=== PATIENT | male | born 1955 | race Caucasian/White ===

== ENCOUNTER 2016-11-14 13:13 | Outpatient (CLI) | payer BC | END 2016-11-14 23:00 | LOC: RT SRH 13:13 | DX: J44.9 Chronic obstructive pulmonary disease, unspecified (principal); Z87.891 Personal history of nicotine dependence ==

== ENCOUNTER 2016-11-25 14:59 | Emergency (ER) | payer BC ==
--- NOTE | 2016-11-25 16:51 | ED NURSING NOTES ---
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 Acuity: LEVEL 3. Chief Complaint: LEFT UPPER EXTREMITY PAIN and NUMBNESS. Alert. --15:14 Hazel Singleton 15:11 11/25/16. BP: 143/91. HR: 65. RR: 18. O2 saturation: 99%. Temp: 98.2 F. Pain level now 01/14. --15:14 Hazel Singleton. Weight: 81.6 kg. Height/Length: 71 inches. BMI: 25.1. --15:11 Hazel Singleton. Medications Ventolin HFA Inhalation. --15:12 Hazel Singleton FLUoxetine HCl Oral. --15:12 Hazel Singleton. Allergies No Known Drug Allergy. --15:12 Hazel Singleton. History Arrived by private vehicle. Historian: patient. Accompanied by family. No injury occurred. This occurred yesterday. 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 SOCIAL HX: Heavy tobacco smoker (cigarette)- 1 pack per day. Alcohol use. History of drug use: marijuana. --15:14 Hazel Singleton ( Pt recently referred to neurology due to c/o spasms to lower legs inc top of shins, CK highly elevated). --15:17 Hazel Singleton. ADDITIONAL SURGERIES: Back Surgery. --15:13 Hazel Singleton. Interventions ID band on patient. To treatment room. --15:14 Hazel Singleton. PHYSICAL ASSESSMENT Ambulatory to room. GENERAL / NEURO / PSYCH: Oriented X 4. Alert. Appears in pain. EXTREMITIES: Left shoulder: tenderness. Left arm: tenderness (numbness tingling). Left forearm: (numbness tingling). SKIN: Skin intact. Skin is warm and dry. --15:15 Hazel Singleton. NURSING PROGRESS NOTES Patient gowned. Reassurance given. Call light placed in reach. Bed placed in lowest position. Brakes of bed on. --15:16 Hazel Singleton 16:11 11/25/2016 Toradol (Ketorolac Tromethamine) IM 60 mg given. Given in the left gluteus mavis. Allergies verified and confirmed 5 rights. --16:12 Hazel Singleton 16:13 11/25/2016 Soma (Carisoprodol) PO 350 mg given. Allergies verified, confirmed 5 rights and sedative warning given to the patient and patient's family. --16:13 Hazel Singleton 16:13 11/25/2016 Oxycodone-APAP (Oxycodone-Acetaminophen) PO 10/650 mg Tablets 2 tab given. Allergies verified, confirmed 5 rights and sedative warning given to the patient. --16:13 Hazel Singleton. DISPOSITION / DISCHARGE Departure time: 1655. Condition at departure: unchanged and stable. No learning barriers present. Discharge instructions provided and reviewed with the patient. Reviewed warnings. Reviewed medication(s). Patient verbalized understanding. Written instructions provided in Greenlandic. The patient was discharged by the physician. He was discharged home and accompanied by spouse. He left the Emergency Department ambulatory and via private vehicle. Spouse driving. --16:56 Hazel Singleton. Locked/Released at 11/25/2016 16:57 by Hazel Singleton,
--- NOTE | 2016-11-25 16:51 | ED NURSING NOTES ---
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 Acuity: LEVEL 3. Chief Complaint: LEFT UPPER EXTREMITY PAIN and NUMBNESS. Alert. --15:14 Hazel Singleton 15:11 11/25/16. BP: 143/91. HR: 65. RR: 18. O2 saturation: 99%. Temp: 98.2 F. Pain level now 01/14. --15:14 Hazel Singleton. Weight: 81.6 kg. Height/Length: 71 inches. BMI: 25.1. --15:11 Hazel Singleton. Medications Ventolin HFA Inhalation. --15:12 Hazel Singleton FLUoxetine HCl Oral. --15:12 Hazel Singleton. Allergies No Known Drug Allergy. --15:12 Hazel Singleton. History Arrived by private vehicle. Historian: patient. Accompanied by family. No injury occurred. This occurred yesterday. 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 SOCIAL HX: Heavy tobacco smoker (cigarette)- 1 pack per day. Alcohol use. History of drug use: marijuana. --15:14 Hazel Singleton ( Pt recently referred to neurology due to c/o spasms to lower legs inc top of shins, CK highly elevated). --15:17 Hazel Singleton. ADDITIONAL SURGERIES: Back Surgery. --15:13 Hazel Singleton. Interventions ID band on patient. To treatment room. --15:14 Hazel Singleton. PHYSICAL ASSESSMENT Ambulatory to room. GENERAL / NEURO / PSYCH: Oriented X 4. Alert. Appears in pain. EXTREMITIES: Left shoulder: tenderness. Left arm: tenderness (numbness tingling). Left forearm: (numbness tingling). SKIN: Skin intact. Skin is warm and dry. --15:15 Hazel Singleton. NURSING PROGRESS NOTES Patient gowned. Reassurance given. Call light placed in reach. Bed placed in lowest position. Brakes of bed on. --15:16 Hazel Singleton 16:11 11/25/2016 Toradol (Ketorolac Tromethamine) IM 60 mg given. Given in the left gluteus mavis. Allergies verified and confirmed 5 rights. --16:12 Hazel Singleton 16:13 11/25/2016 Soma (Carisoprodol) PO 350 mg given. Allergies verified, confirmed 5 rights and sedative warning given to the patient and patient's family. --16:13 Hazel Singleton 16:13 11/25/2016 Oxycodone-APAP (Oxycodone-Acetaminophen) PO 10/650 mg Tablets 2 tab given. Allergies verified, confirmed 5 rights and sedative warning given to the patient. --16:13 Hazel Singleton. DISPOSITION / DISCHARGE Departure time: 1655. Condition at departure: unchanged and stable. No learning barriers present. Discharge instructions provided and reviewed with the patient. Reviewed warnings. Reviewed medication(s). Patient verbalized understanding. Written instructions provided in Solomon Islander. The patient was discharged by the physician. He was discharged home and accompanied by spouse. He left the Emergency Department ambulatory and via private vehicle. Spouse driving. --16:56 Hazel Singleton. Locked/Released at 11/25/2016 16:57 by Hazel Singleton,
--- NOTE | 2016-11-25 16:51 | ED ORDER SUMMARY ---
..... 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 [facility] VisitID: [id number] [place] [address] 60y, M Registration Date/Time: 11/25/2016 ORDER SHEET Weight: 81.6 kg Allergies: No Known Drug Allergy GENERAL ORDERS: Cervical Spine 2 or 3V Urgent (15:48 11/25/2016 Shiv POSADA) ([facility]ck [facility] (16[facility] Sling - arm (16:29 11/25/2016 Shiv POSADA) (16:51 Katie) MEDICATION ORDERS: Toradol IM 60 mg (NOW) (15:48 11/25/2016 Shiv POSADA) (16:12 Katie) Soma PO 350 mg (NOW) (15:48 11/25/2016 Shiv POSADA) (16:13 Katie) Oxycodone-APAP PO 10/650 mg (NOW) (15:49 11/25/2016 Shiv POSADA) (16:13 Katie) IV FLUIDS: ORDER SHEET NOTES: [Electronically signed by Hazel Singleton (16:57 11/25/2016)] [Electronically signed by Scooby Han MD (15:08 12/01/2016)] [Electronically locked/signed by Hazel Singleton (16:57 11/25/2016)]
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
--- NOTE | 2016-11-25 16:51 | ED ORDER SUMMARY ---
..... 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 [facility] VisitID: [id number] [place] [address] 60y, M Registration Date/Time: 11/25/2016 ORDER SHEET Weight: 81.6 kg Allergies: No Known Drug Allergy GENERAL ORDERS: Cervical Spine 2 or 3V Urgent (15:48 11/25/2016 Shiv POSADA) (Ack 15:55 [facility] Sling - arm (16:29 11/25/2016 Shiv POSADA) (16:51 Katie) MEDICATION ORDERS: Toradol IM 60 mg (NOW) (15:48 11/25/2016 Shiv POSADA) (16:12 Katie) Soma PO 350 mg (NOW) (15:48 11/25/2016 Shiv POSADA) (16:13 Katie) Oxycodone-APAP PO 10/650 mg (NOW) (15:49 11/25/2016 Shiv POSADA) (16:13 Katie) IV FLUIDS: ORDER SHEET NOTES: [Electronically signed by Hazel Singleton (16:57 11/25/2016)] [Electronically signed by Scooby Han MD (15:08 12/01/2016)] [Electronically locked/signed by Hazel Singleton (16:57 11/25/2016)]
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
--- NOTE | 2016-11-25 16:59 | DIAGNOSTIC IMAGING REPORT ---
PROCEDURE: XR CERVICAL SPINE 2 OR 3 VIEW INDICATION: NECK PAIN TECHNIQUE: Three views. COMPARISON: None. FINDINGS: Normal alignment without fracture. Moderate degenerative changes at C4-5, C5-6 and C6-7. There is some straightening of the cervical spine. Odontoid, lateral masses of C1 and prevertebral soft tissues are normal. IMPRESSION: 1. Moderate degenerative changes with multilevel disc space narrowing 2. Straightening of the cervical spine suggestive of muscular spasm.
--- NOTE | 2016-12-01 15:09 | ED MAR SUMMARY ---
..... 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 Medication Ordered: Toradol IM 60 mg (NOW). Given 16:11/25/2016 Hazel Singleton, Medication Administered: SOMA [PO] (CARISOPRODOL), Dose: 350 mg PO. Medication Ordered: Soma PO 350 mg (NOW). Given 16:11/25/2016 Hazel Singleton, Medication Administered: OXYCODONE-APAP [PO] (OXYCODONE-ACETAMINOPHEN), Dose: 2 tab 10/650 mg Tablets PO. Medication Ordered: Oxycodone-APAP PO 10/650 mg (NOW).
--- NOTE | 2016-12-01 15:09 | ED MED RECONCILIATION SUMMARY ---
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 BMI: 25.1 ALLERGIES: No Known Drug Allergy The patient's Home Medications are listed below: THE FOLLOWING MEDICATIONS NEED TO BE RECONCILED: FLUoxetine HCl Oral Ventolin HFA Inhalation The source(s) of the original Home Medication information: Not obtained. The following Medications were given to the patient in the Emergency Department: Toradol [IM] IM 60 mg, administered: 11/25/2016 4:11:00 PM Soma [PO] PO 350 mg, administered: 11/25/2016 4:13:00 PM Oxycodone-APAP [PO] PO 2 tab, administered: 11/25/2016 4:13:00 PM The following Medications were prescribed to the patient: Motrin (available over the counter): take according to label instructions. -- Scooby Han MD Oxycodone/APAP 5 mg/325 mg: take 1-2 tablets orally every 4 hours as needed for pain. Dispense twenty (20). No refill. -- Scooby Han MD Soma 350 mg: Take 1 orally every 6 hours as needed for muscle spasm. Dispense twenty (20). No refills. Substitution is permissible. -- Scooby Han MD
--- NOTE | 2016-12-01 15:09 | ED MAR SUMMARY ---
..... 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 Medication Ordered: Toradol IM 60 mg (NOW). Given 16:11/25/2016 Hazel Singleton, Medication Administered: SOMA [PO] (CARISOPRODOL), Dose: 350 mg PO. Medication Ordered: Soma PO 350 mg (NOW). Given 16:11/25/2016 Hazel Singleton, Medication Administered: OXYCODONE-APAP [PO] (OXYCODONE-ACETAMINOPHEN), Dose: 2 tab 10/650 mg Tablets PO. Medication Ordered: Oxycodone-APAP PO 10/650 mg (NOW).
--- NOTE | 2016-12-01 15:09 | ED MED RECONCILIATION SUMMARY ---
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 BMI: 25.1 ALLERGIES: No Known Drug Allergy The patient's Home Medications are listed below: THE FOLLOWING MEDICATIONS NEED TO BE RECONCILED: FLUoxetine HCl Oral Ventolin HFA Inhalation The source(s) of the original Home Medication information: Not obtained. The following Medications were given to the patient in the Emergency Department: Toradol [IM] IM 60 mg, administered: 11/25/2016 4:11:00 PM Soma [PO] PO 350 mg, administered: 11/25/2016 4:13:00 PM Oxycodone-APAP [PO] PO 2 tab, administered: 11/25/2016 4:13:00 PM The following Medications were prescribed to the patient: Motrin (available over the counter): take according to label instructions. -- Scooby Han MD Oxycodone/APAP 5 mg/325 mg: take 1-2 tablets orally every 4 hours as needed for pain. Dispense twenty (20). No refill. -- Scooby Han MD Soma 350 mg: Take 1 orally every 6 hours as needed for muscle spasm. Dispense twenty (20). No refills. Substitution is permissible. -- Scooby Han MD
--- NOTE | 2016-12-01 15:09 | ED DISCHARGE INSTRUCTIONS ---
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 INSTRUCTIONS Warnings: Further evaluation is necessary. GENERAL WARNINGS: Return or contact your physician immediately if your condition worsens or changes unexpectedly, if not improving as expected, or if other problems arise. Prescription Medications: Oxycodone/APAP 5 mg/325 mg: take 1-2 tablets orally every 4 hours as needed for pain. Dispense twenty (20). No refill. Soma 350 mg: Take 1 orally every 6 hours as needed for muscle spasm. Dispense twenty (20). No refills. Substitution is permissible. OTC Medications: Motrin (available over the counter): take according to label instructions. Understanding of the discharge instructions verbalized by patient. Follow-up with: Julius Cortes MD, [facility], , [facility] Abdirahman Tam [place] [id number] [id number] Follow up Monday in three days as scheduled. ADDITIONAL INFORMATION Pinched Nerve, Neck [Cervical Radiculopathy] A pinched nerve in the neck (also called "Cervical Radiculopathy") is caused by irritation or pressure on the nerve that goes from the spinal cord to the arm. This may be caused by a bulging spinal disk (a "spinal disk" is the cushion between each spinal bone) or narrowing of the spinal joint due to arthritis. This can cause numbness, tingling, deep aching or electrical shooting pain from the side of the neck all the way down to the fingers on one side. A pinched nerve may begin after a sudden turning/bending force (such as in a car accident) or after a simple awkward movement. In either case, muscle spasm is commonly present and contributes to the pain. Home Care: 1) Rest and relax the muscles. Use a comfortable pillow that supports the head and keeps the spine in a neutral position. The position of the head should not be tilted forward or backward. A rolled up towel may help for a custom fit. 2) Some persons find relief with heat (hot shower, hot bath or heating pad) and massage, while others prefer cold packs (crushed or cubed ice in a plastic bag, wrapped in a towel) . Try both and use the method that feels best for 20 minutes several times a day. 3) You may use acetaminophen (Tylenol) or ibuprofen (Motrin, Advil) to control pain, unless another medicine was prescribed. [ NOTE : If you have chronic liver or kidney disease or ever had a stomach ulcer or GI bleeding, talk with your doctor before using these medicines.] Follow Up with your physician or this facility if your symptoms do not show signs of improvement after one week. Further testing may be needed. [NOTE: If x-rays were taken, they will be reviewed by a radiologist. You will be notified of any new findings that may affect your care.] Get Prompt Medical Attention if any of the following occur: -- Pain becomes worse and not controlled by prescribed pain medicine -- Weakness in the arm -- Increasing numbness in the arm -- Trouble breathing or swallowing Oxycodone Hydrochloride, Acetaminophen Oral tablet What is this medicine? ACETAMINOPHEN; OXYCODONE (a set a JUDY phil fen; ox i KOE done) is a pain reliever. It is used to treat mild to moderate pain. How should I use this medicine? Take this medicine by mouth with a full glass of water. Follow the directions on the prescription label. Take your medicine at regular intervals. Do not take your medicine more often than directed. Talk to your cnp regarding the use of this medicine in children. Special care may be needed. Patients over 65 years old may have a stronger reaction and need a smaller dose. What side effects may I notice from receiving this medicine? Side effects that you should report to your doctor or health home care giver as soon as possible: allergic reactions like skin rash, itching or hives, swelling of the face, lips, or tongue breathing difficulties, wheezing confusion light headedness or fainting spells severe stomach pain yellowing of the skin or the whites of the eyes Side effects that usually do not require medical attention (report to your doctor or health home care giver if they continue or are bothersome): dizziness drowsiness nausea vomiting What may interact with this medicine? alcohol antihistamines barbiturates like amobarbital, butalbital, butabarbital, methohexital, pentobarbital, phenobarbital, thiopental, and secobarbital benztropine drugs for bladder problems like solifenacin, trospium, oxybutynin, tolterodine, hyoscyamine, and methscopolamine drugs for breathing problems like ipratropium and tiotropium drugs for certain stomach or intestine problems like propantheline, homatropine methylbromide, glycopyrrolate, atropine, belladonna, and dicyclomine general anesthetics like etomidate, ketamine, nitrous oxide, propofol, desflurane, enflurane, halothane, isoflurane, and sevoflurane medicines for depression, anxiety, or psychotic disturbances medicines for sleep muscle relaxants naltrexone narcotic medicines (opiates) for pain phenothiazines like perphenazine, thioridazine, chlorpromazine, mesoridazine, fluphenazine, prochlorperazine, promazine, and trifluoperazine scopolamine tramadol trihexyphenidyl What if I miss a dose? If you miss a dose, take it as soon as you can. If it is almost time for your next dose, take only that dose. Do not take double or extra doses. Where should I keep my medicine? Keep out of the reach of children. This medicine can be abused. Keep your medicine in a safe place to protect it from theft. Do not share this medicine with anyone. Selling or giving away this medicine is dangerous and against the law. Store at room temperature between 20 and 25 degrees C (68 and 77 degrees F). Keep container tightly closed. Protect from light. This medicine may cause accidental overdose and if it is taken by other adults, children, or pets. Flush any unused medicine down the toilet to reduce the chance of harm. Do not use the medicine after the expiration date. What should I tell my health care provider before I take this medicine? They need to know if you have any of these conditions: brain tumor Crohn's disease, inflammatory bowel disease, or ulcerative colitis drink more than 3 alcohol containing drinks per day drug abuse or addiction head injury heart or circulation problems kidney disease or problems going to the bathroom liver disease lung disease, asthma, or breathing problems an unusual or allergic reaction to acetaminophen, oxycodone, other opioid analgesics, other medicines, foods, dyes, or preservatives or trying to get breast-feeding What should I watch for while using this medicine? Tell your doctor or health home care giver if your pain does not go away, if it gets worse, or if you have new or a different type of pain. You may develop tolerance to the medicine. Tolerance means that you will need a higher dose of the medication for pain relief. Tolerance is normal and is expected if you take this medicine for a long time. Do not suddenly stop taking your medicine because you may develop a severe reaction. Your body becomes used to the medicine. This does NOT mean you are addicted. Addiction is a behavior related to getting and using a drug for a non-medical reason. If you have pain, you have a medical reason to take pain medicine. Your doctor will tell you how much medicine to take. If your doctor wants you to stop the medicine, the dose will be slowly lowered over time to avoid any side effects. You may get drowsy or dizzy. Do not drive, use machinery, or do anything that needs mental alertness until you know how this medicine affects you. Do not stand or sit up quickly, especially if you are an older patient. This reduces the risk of dizzy or fainting spells. Alcohol may interfere with the effect of this medicine. Avoid alcoholic drinks. There are different types of narcotic medicines (opiates) for pain. If you take more than one type at the same time, you may have more side effects. Give your health care provider a list of all medicines you use. Your doctor will tell you how much medicine to take. Do not take more medicine than directed. Call emergency for help if you have problems breathing. The medicine will cause constipation. Try to have a bowel movement at least every 2 to 3 days. If you do not have a bowel movement for 3 days, call your doctor or health home care giver. Do not take Tylenol (acetaminophen) or medicines that have acetaminophen with this medicine. Too much acetaminophen can be very dangerous. Many nonprescription medicines contain acetaminophen. Always read the labels carefully to avoid taking more acetaminophen. You have been given the following additional information: Radiculopathy, Cervical Oxycodone Hydrochloride, Acetaminophen Oral tablet (Electronically signed by Scooby Han MD 12/01/2016 15:08)
--- NOTE | 2016-12-01 15:09 | ED DISCHARGE INSTRUCTIONS ---
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 INSTRUCTIONS Warnings: Further evaluation is necessary. GENERAL WARNINGS: Return or contact your physician immediately if your condition worsens or changes unexpectedly, if not improving as expected, or if other problems arise. Prescription Medications: Oxycodone/APAP 5 mg/325 mg: take 1-2 tablets orally every 4 hours as needed for pain. Dispense twenty (20). No refill. Soma 350 mg: Take 1 orally every 6 hours as needed for muscle spasm. Dispense twenty (20). No refills. Substitution is permissible. OTC Medications: Motrin (available over the counter): take according to label instructions. Understanding of the discharge instructions verbalized by patient. Follow-up with: Julius Cortes MD, [facility], , [facility] Abdirahman Tam [place] [id number] [id number] Follow up Monday in three days as scheduled. ADDITIONAL INFORMATION Pinched Nerve, Neck [Cervical Radiculopathy] A pinched nerve in the neck (also called "Cervical Radiculopathy") is caused by irritation or pressure on the nerve that goes from the spinal cord to the arm. This may be caused by a bulging spinal disk (a "spinal disk" is the cushion between each spinal bone) or narrowing of the spinal joint due to arthritis. This can cause numbness, tingling, deep aching or electrical shooting pain from the side of the neck all the way down to the fingers on one side. A pinched nerve may begin after a sudden turning/bending force (such as in a car accident) or after a simple awkward movement. In either case, muscle spasm is commonly present and contributes to the pain. Home Care: 1) Rest and relax the muscles. Use a comfortable pillow that supports the head and keeps the spine in a neutral position. The position of the head should not be tilted forward or backward. A rolled up towel may help for a custom fit. 2) Some persons find relief with heat (hot shower, hot bath or heating pad) and massage, while others prefer cold packs (crushed or cubed ice in a plastic bag, wrapped in a towel) . Try both and use the method that feels best for 20 minutes several times a day. 3) You may use acetaminophen (Tylenol) or ibuprofen (Motrin, Advil) to control pain, unless another medicine was prescribed. [ NOTE : If you have chronic liver or kidney disease or ever had a stomach ulcer or GI bleeding, talk with your doctor before using these medicines.] Follow Up with your physician or this facility if your symptoms do not show signs of improvement after one week. Further testing may be needed. [NOTE: If x-rays were taken, they will be reviewed by a radiologist. You will be notified of any new findings that may affect your care.] Get Prompt Medical Attention if any of the following occur: -- Pain becomes worse and not controlled by prescribed pain medicine -- Weakness in the arm -- Increasing numbness in the arm -- Trouble breathing or swallowing Oxycodone Hydrochloride, Acetaminophen Oral tablet What is this medicine? ACETAMINOPHEN; OXYCODONE (a set a JUDY phil fen; ox i KOE done) is a pain reliever. It is used to treat mild to moderate pain. How should I use this medicine? Take this medicine by mouth with a full glass of water. Follow the directions on the prescription label. Take your medicine at regular intervals. Do not take your medicine more often than directed. Talk to your sweatband perforator regarding the use of this medicine in children. Special care may be needed. Patients over 65 years old may have a stronger reaction and need a smaller dose. What side effects may I notice from receiving this medicine? Side effects that you should report to your doctor or health resident care spec as soon as possible: allergic reactions like skin rash, itching or hives, swelling of the face, lips, or tongue breathing difficulties, wheezing confusion light headedness or fainting spells severe stomach pain yellowing of the skin or the whites of the eyes Side effects that usually do not require medical attention (report to your doctor or health resident care spec if they continue or are bothersome): dizziness drowsiness nausea vomiting What may interact with this medicine? alcohol antihistamines barbiturates like amobarbital, butalbital, butabarbital, methohexital, pentobarbital, phenobarbital, thiopental, and secobarbital benztropine drugs for bladder problems like solifenacin, trospium, oxybutynin, tolterodine, hyoscyamine, and methscopolamine drugs for breathing problems like ipratropium and tiotropium drugs for certain stomach or intestine problems like propantheline, homatropine methylbromide, glycopyrrolate, atropine, belladonna, and dicyclomine general anesthetics like etomidate, ketamine, nitrous oxide, propofol, desflurane, enflurane, halothane, isoflurane, and sevoflurane medicines for depression, anxiety, or psychotic disturbances medicines for sleep muscle relaxants naltrexone narcotic medicines (opiates) for pain phenothiazines like perphenazine, thioridazine, chlorpromazine, mesoridazine, fluphenazine, prochlorperazine, promazine, and trifluoperazine scopolamine tramadol trihexyphenidyl What if I miss a dose? If you miss a dose, take it as soon as you can. If it is almost time for your next dose, take only that dose. Do not take double or extra doses. Where should I keep my medicine? Keep out of the reach of children. This medicine can be abused. Keep your medicine in a safe place to protect it from theft. Do not share this medicine with anyone. Selling or giving away this medicine is dangerous and against the law. Store at room temperature between 20 and 25 degrees C (68 and 77 degrees F). Keep container tightly closed. Protect from light. This medicine may cause accidental overdose and if it is taken by other adults, children, or pets. Flush any unused medicine down the toilet to reduce the chance of harm. Do not use the medicine after the expiration date. What should I tell my health care provider before I take this medicine? They need to know if you have any of these conditions: brain tumor Crohn's disease, inflammatory bowel disease, or ulcerative colitis drink more than 3 alcohol containing drinks per day drug abuse or addiction head injury heart or circulation problems kidney disease or problems going to the bathroom liver disease lung disease, asthma, or breathing problems an unusual or allergic reaction to acetaminophen, oxycodone, other opioid analgesics, other medicines, foods, dyes, or preservatives or trying to get breast-feeding What should I watch for while using this medicine? Tell your doctor or health resident care spec if your pain does not go away, if it gets worse, or if you have new or a different type of pain. You may develop tolerance to the medicine. Tolerance means that you will need a higher dose of the medication for pain relief. Tolerance is normal and is expected if you take this medicine for a long time. Do not suddenly stop taking your medicine because you may develop a severe reaction. Your body becomes used to the medicine. This does NOT mean you are addicted. Addiction is a behavior related to getting and using a drug for a non-medical reason. If you have pain, you have a medical reason to take pain medicine. Your doctor will tell you how much medicine to take. If your doctor wants you to stop the medicine, the dose will be slowly lowered over time to avoid any side effects. You may get drowsy or dizzy. Do not drive, use machinery, or do anything that needs mental alertness until you know how this medicine affects you. Do not stand or sit up quickly, especially if you are an older patient. This reduces the risk of dizzy or fainting spells. Alcohol may interfere with the effect of this medicine. Avoid alcoholic drinks. There are different types of narcotic medicines (opiates) for pain. If you take more than one type at the same time, you may have more side effects. Give your health care provider a list of all medicines you use. Your doctor will tell you how much medicine to take. Do not take more medicine than directed. Call emergency for help if you have problems breathing. The medicine will cause constipation. Try to have a bowel movement at least every 2 to 3 days. If you do not have a bowel movement for 3 days, call your doctor or health resident care spec. Do not take Tylenol (acetaminophen) or medicines that have acetaminophen with this medicine. Too much acetaminophen can be very dangerous. Many nonprescription medicines contain acetaminophen. Always read the labels carefully to avoid taking more acetaminophen. You have been given the following additional information: Radiculopathy, Cervical Oxycodone Hydrochloride, Acetaminophen Oral tablet (Electronically signed by Scooby Han MD 12/01/2016 15:08)
== END 2016-11-25 16:55 | disposition home or self-care (01) ==
LOC: ED SRH 14:59
DX: M54.12 Radiculopathy, cervical region (principal); R44.9 Unspecified symptoms and signs involving general sensations and perceptions; F17.210 Nicotine dependence, cigarettes, uncomplicated; Z79.899 Other long term (current) drug therapy

== ENCOUNTER 2016-11-30 09:36 | Outpatient (CLI) | payer BC ==
--- NOTE | 2016-11-30 12:25 | DIAGNOSTIC IMAGING REPORT ---
PROCEDURE: MR CERVICAL SPINE W/O CONT INDICATION: CERVICAL RADICULOPATHY,C6 TECHNIQUE: T1, T2, and STIR sagittal sequences. T2 and GRE axial sequences. Bilateral T2 sagittal obliques. COMPARISON: Plain films 11/25/2016 FINDINGS: Alignment and curvature: Trace retrolisthesis C4-5. Otherwise normal alignment. Vertebral bodies: Mild type 1 modic changes within the C5 and C6 vertebra. Small posterior endplate spurs at C4-C7. Disc spaces: Moderate disc height loss and desiccation C4-5, C5-6, and C6-7. Spinal canal: Spinal cord is of normal signal. Spinal canal caliber is decreased from C4-C6. No suspicious central canal masses. Paraspinal soft tissues: Asymmetrically enlarged left thyroid lobe. Mucosal thickening within the visible portion of the left maxillary sinus. C2-3: Minor disc osteophyte complex. C3-4: Mild diffuse circumferential disc osteophyte complex and uncovertebral joint hypertrophy. Left facet arthropathy. Mild left foraminal narrowing. Moderate left foraminal narrowing. C4-5: Degenerative circumferential disc osteophyte complex and uncovertebral joint hypertrophy. Moderate bilateral facet arthropathy. Moderate to severe bilateral foraminal narrowing, left worse than right. Partial effacement of anterior CSF and flattening of the anterior cord shape. C5-6: Moderate circumferential disc osteophyte complex and fairly severe uncovertebral joint hypertrophy. Moderate facet arthropathy, left worse than right. Moderate to severe bilateral foraminal narrowing, left worse than right. Mild central canal narrowing. C6-7: Small right paracentral disc osteophyte protrusion superimposed on a mild circumferential disc osteophyte complex. Mild to moderate facet arthropathy and mild to moderate bilateral foraminal narrowing. There is slight distortion of the right anterior cord shape but no significant central canal stenosis. C7-T1: Normal. IMPRESSION: 1. Degenerative disc osteophyte complex/uncovertebral joint hypertrophy, and facet arthropathy together cause moderate to severe bilateral foraminal narrowing at C4-5 and C5-6, possibly causing radiculopathy in C5 and/or C6 dermatomes bilaterally. 2. Mild central canal narrowing at C4-5 and C5-6. 3. Right paracentral disc/osteophyte protrusion at the C6-7 level slightly distorting the cord shape but without significant central canal stenosis or abnormal cord signal.
== END 2016-11-30 23:00 ==
LOC: MRI SRH 09:36
DX: M25.78 Osteophyte, vertebrae (principal); M50.323 Other cervical disc degeneration at C6-C7 level